=== PATIENT | female | born 1995 | race Caucasian/White ===

== ENCOUNTER → 2023-10-11 12:54 | Outpatient (REF) | payer OTHER, SELFPAY | LOC: HWRAD 12:54 | PROVIDERS: ATTENDING PHYSICIAN Nurse Practitioner Family; FAMILY PHYSICIAN Family Medicine | DX: Z34.91 Encounter for supervision of normal pregnancy, unspecified, first trimester (principal) | CPT/HCPCS: 76801 ==

== ENCOUNTER → 2023-10-30 16:55 | Outpatient (REF) | payer OTHER, SELFPAY | LOC: PNTC 16:55 | PROVIDERS: ATTENDING PHYSICIAN Obstetrics & Gynecology | DX: Z36.0 Encounter for antenatal screening for chromosomal anomalies (principal); Z36.82 Encounter for antenatal screening for nuchal translucency; Z36.9 Encounter for antenatal screening, unspecified | CPT/HCPCS: 76801; 76813 ==

== ENCOUNTER → 2023-12-21 08:51 | Outpatient (REF) | payer OTHER, SELFPAY | LOC: PNTC 08:51 | PROVIDERS: ATTENDING PHYSICIAN Obstetrics & Gynecology | DX: Z36.0 Encounter for antenatal screening for chromosomal anomalies (principal) | CPT/HCPCS: 76805 ==

== ENCOUNTER 2024-03-18 11:52 | Observation (INO) | payer OTHER, SELFPAY ==
[2024-03-18 12:20] VITALS: BP 137/75; BMI 30.1
[2024-03-18 12:30] LABS: % Basophils 0.4 % (0-2); % Eosinophils 0.5 % (0-6); % Immature Granulocytes 1.1 % (0-0.5); % Lymphocytes 14.2 % (20.5-51.1); % Monocytes 6.2 % (1.7-9.3); % Neutrophils 77.6 % (42.2-75.2); Absolute Basophils 0.1 10^3/uL (0-0.2); Absolute Eosinophils 0.1 10^3/uL (0-0.7); Absolute Immature Granulocytes 0.2 10^3/uL (0-0.05); Absolute Lymphocytes 1.9 10^3/uL (1.2-3.4); Absolute Monocytes 0.8 10^3/uL (0.1-0.6); Absolute Neutrophils 10.5 10^3/uL (1.4-6.5); Hematocrit 37.6 % (37.0-47.0); Hemoglobin 12.6 g/dL (12.0-16.0); Mean Corp Hgb Conc. 33.5 g/dL (33.0-37.0); Mean Corpuscular Hgb 28.8 pg (27.0-31.0); Nucleated Red Blood Cells % 0 %; Platelet Count 253 10^3/uL (130-400); Red Blood Cell Count 4.37 10^6/uL (4.20-5.40); Red Cell Dist. Width 11.9 % (11.5-14.5); White Blood Cell Count 13.5 10^3/uL (4.8-10.8)
[2024-03-18 12:32] LABS: Urine Albumin Negative (Neg - Trace); Urine Bilirubin Negative (Negative); Urine Character Clear (Clear); Urine Color Yellow; Urine Glucose Negative (Negative); Urine Ketone Negative (Negative); Urine Leukocyte Trace (Negative); Urine Nitrite Negative (Negative); Urine Occult Blood Negative (Negative); Urine Urobilinogen Negative (Neg - 1+)
[2024-03-18 12:47] LABS: ALT (SGPT) 14 U/L (0-35); AST (SGOT) 21 U/L (14-36); Albumin 4.1 g/dl (3.5-5.0); Alkaline Phosphatase 102 U/L (38-126); Blood Urea Nitrogen 11 mg/dl (7-17); Calcium 9.5 mg/dl (8.4-10.2); Carbon Dioxide 20 mmol/L (22-30); Chloride 104 mmol/L (98-107); Estimated Creatinine Clearance > 125 ml/min; Glucose 90 mg/dl (70-99); Potassium 4.2 mmol/L (3.5-5.1); Sodium 137 mmol/L (135-145); Total Bilirubin 0.3 mg/dl (0.2-1.3); Total Protein 7.1 g/dl (6.3-8.2); Uric Acid 4.3 mg/dl (2.5-6.2); eGFR > 60.00
[2024-03-18 12:49] LABS: Urine Squamous Cell 21-25 /LPF (Few)
[2024-03-18 12:50] LABS: Urine Hyaline Cast 0-2 /LPF (0-2); Urine Red Blood Cell 0-2 /HPF (0-2); Urine White Cell 0-2 /HPF (0-5)
[2024-03-18 13:09] LABS: Protein/creatinine Ratio 0.3; Urine Protein 12 mg/dl
== END 2024-03-18 14:16 | disposition home or self-care (01) ==
LOC: PNTC-IN 11:52
PROVIDERS: ADMITTING PHYSICIAN Obstetrics & Gynecology; ATTENDING PHYSICIAN Obstetrics & Gynecology
DX: O14.93 Unspecified pre-eclampsia, third trimester (principal); Z3A.32 32 weeks gestation of pregnancy; O99.283 Endocrine, nutritional and metabolic diseases complicating pregnancy, third trimester; E89.0 Postprocedural hypothyroidism; Z85.850 Personal history of malignant neoplasm of thyroid
CPT/HCPCS: 76816; 80053; 81003; 81015; 82570; 84156; 84550; 85025; 86850; 86900; 86901; G0378

== ENCOUNTER → 2024-03-26 09:53 | Outpatient (REF) | payer OTHER, SELFPAY | LOC: PNTC 09:53 | PROVIDERS: ATTENDING PHYSICIAN Obstetrics & Gynecology | DX: O13.3 Gestational [pregnancy-induced] hypertension without significant proteinuria, third trimester (principal) | CPT/HCPCS: 59025; 76815 ==

== ENCOUNTER → 2024-04-01 08:08 | Outpatient (REF) | payer OTHER, SELFPAY | LOC: PNTC 08:08 | PROVIDERS: ATTENDING PHYSICIAN Obstetrics & Gynecology | DX: O13.9 Gestational [pregnancy-induced] hypertension without significant proteinuria, unspecified trimester (principal) | CPT/HCPCS: 59025; 76815 ==

== ENCOUNTER → 2024-04-08 11:48 | Outpatient (REF) | payer OTHER, SELFPAY | LOC: PNTC 11:48 | PROVIDERS: ATTENDING PHYSICIAN Obstetrics & Gynecology | DX: O13.9 Gestational [pregnancy-induced] hypertension without significant proteinuria, unspecified trimester (principal) | CPT/HCPCS: 59025; 76815 ==

== ENCOUNTER → 2024-04-16 08:34 | Outpatient (REF) | payer OTHER, SELFPAY | LOC: PNTC 08:34 | PROVIDERS: ATTENDING PHYSICIAN Obstetrics & Gynecology | DX: O13.9 Gestational [pregnancy-induced] hypertension without significant proteinuria, unspecified trimester (principal) | CPT/HCPCS: 59025; 76816 ==

== ENCOUNTER 2024-04-18 19:26 | Inpatient (IN) | payer OTHER, SELFPAY ==
[2024-04-18 19:36] VITALS: BP 141/85; BMI 30.1
[2024-04-18 20:04] LABS: % Basophils 0.3 % (0-2); % Eosinophils 1.3 % (0-6); % Immature Granulocytes 1.4 % (0-0.5); % Monocytes 5.3 % (1.7-9.3); % Neutrophils 76.7 % (42.2-75.2); Absolute Eosinophils 0.2 10^3/uL (0-0.7); Absolute Immature Granulocytes 0.2 10^3/uL (0-0.05); Absolute Lymphocytes 2.3 10^3/uL (1.2-3.4); Absolute Monocytes 0.8 10^3/uL (0.1-0.6); Absolute Neutrophils 11.7 10^3/uL (1.4-6.5); Hematocrit 38.7 % (37.0-47.0); Hemoglobin 12.8 g/dL (12.0-16.0); Mean Corp Hgb Conc. 33.1 g/dL (33.0-37.0); Mean Corpuscular Hgb 28.4 pg (27.0-31.0); Mean Corpuscular Volume 85.8 fL (81.0-99.0); Mean Platelet Volume 9.7 fL (7.4-10.4); Nucleated Red Blood Cells % 0 %; Platelet Count 275 10^3/uL (130-400); Red Blood Cell Count 4.51 10^6/uL (4.20-5.40); Red Cell Dist. Width 12.6 % (11.5-14.5); White Blood Cell Count 15.3 10^3/uL (4.8-10.8)
[2024-04-18 20:21] LABS: ALT (SGPT) 15 U/L (0-35); AST (SGOT) 21 U/L (14-36); Albumin 3.8 g/dl (3.5-5.0); Alkaline Phosphatase 123 U/L (38-126); Blood Urea Nitrogen 8 mg/dl (7-17); Calcium 9.5 mg/dl (8.4-10.2); Carbon Dioxide 22 mmol/L (22-30); Chloride 103 mmol/L (98-107); Estimated Creatinine Clearance > 125 ml/min; Glucose 121 mg/dl (70-99); Potassium 3.5 mmol/L (3.5-5.1); Sodium 133 mmol/L (135-145); Total Bilirubin 0.2 mg/dl (0.2-1.3); Total Protein 6.6 g/dl (6.3-8.2); eGFR > 60.00
[2024-04-18] MEDS: CYTOTEC 25 MICROGRAM VAG (20:22)
[2024-04-18] MEDS: LR 1000 IV ×2 (20:22→23:48)
[2024-04-18] MEDS: CYTOTEC 50 MICROGRAM PO (23:49)
[2024-04-19] MEDS: CYTOTEC 50 MICROGRAM PO (04:01)
[2024-04-19] MEDS: CYTOTEC PO ×3 (09:16→17:22)
[2024-04-19] MEDS: PITOCIN 30 UNITS/NSS 500 ML IV (10:37)
[2024-04-19] MEDS: LR 1000 IV (15:22)
[2024-04-19] MEDS: SUBLIMAZE 100 MCG EPIDURAL (17:34)
[2024-04-19] MEDS: FENTANYL/BUPIVACAINE 100 EPIDURAL (17:35)
[2024-04-20] MEDS: TUMS CHEWABLE TABLET 400 MG PO
[2024-04-20] MEDS: TYLENOL 650 MG PO ×2 (06:26→20:05)
[2024-04-20] MEDS: CYTOTEC PO (07:16)
[2024-04-20] MEDS: PRENATAL PLUS 1 TABLET PO (08:13)
[2024-04-20] MEDS: MOTRIN 600 MG PO ×3 (08:13→20:05)
[2024-04-21] MEDS: MOTRIN 600 MG PO ×4 (02:06→23:38)
[2024-04-21] MEDS: TYLENOL 650 MG PO ×4 (02:06→23:38)
[2024-04-21 03:10] LABS: Hematocrit 33.5 % (37.0-47.0)
[2024-04-21] MEDS: SENOKOT-S 1 TABLET PO (09:10)
[2024-04-21] MEDS: PRENATAL PLUS 1 TABLET PO (09:13)
[2024-04-22] MEDS: TYLENOL 650 MG PO (07:52)
[2024-04-22] MEDS: PRENATAL PLUS 1 TABLET PO (07:52)
[2024-04-22] MEDS: MOTRIN 600 MG PO (07:53)
[2024-04-22 18:05] LABS: Syphilis/T. pallidum Ab Reflex Negative (Negative)
== END 2024-04-22 12:05 | disposition home or self-care (01) | DRG 807 ==
LOC: LDRP 19:26
PROVIDERS: Obstetrics & Gynecology; ADMITTING PHYSICIAN Student in an Organized Health Care Education/Training Program
PROC: 3E0P7VZ Introduction of Hormone into Female Reproductive, Via Natural or Artificial Opening (ICD-10-PCS; 2024-04-18)
PROC: 10907ZC Drainage of Amniotic Fluid, Therapeutic from Products of Conception, Via Natural or Artificial Opening (ICD-10-PCS; 2024-04-19)
PROC: 10E0XZZ Delivery of Products of Conception, External Approach (ICD-10-PCS; 2024-04-19)
PROC: 0UQMXZZ Repair Vulva, External Approach (ICD-10-PCS; 2024-04-19)
DX: O14.04 Mild to moderate pre-eclampsia, complicating childbirth (principal); Z37.0 Single live birth; O71.82 Other specified trauma to perineum and vulva; Z3A.37 37 weeks gestation of pregnancy; O76 Abnormality in fetal heart rate and rhythm complicating labor and delivery; O70.0 First degree perineal laceration during delivery
CPT/HCPCS: 88307; 80053; 85014; 85018; 85025; 86780; 86850; 86900; 86901